=== PATIENT | male | born 1985 | race Caucasian/White ===

== ENCOUNTER 2021-05-19 19:18 | Emergency (ER) | payer MEDICAID ==
[~2021-05-19] VITALS: Ht 167.6 cm; Wt 77.6 kg
[2021-05-19 19:18] VITALS: BP 110/75
--- NOTE | 2021-05-19 19:18 | NUR ---
36 Y/O MALE PRESENTED TO ED C/O TONIC CLONIC SEZIURE ACTIVITY FOR UNKNOWN DURATION. PT'S FAMILY CALLED 911. PT HAS HX OF SEZIURES AND TBI X 4 YRS AGO. PT PRESENTING A/O X 3 , ORIENTED TO PERSON, PLACE BUT NOT TO TIME. PERRLA 4-3MM NOTED. PT STATES HE BIT HIS TONGUE AFTER HIS SEIZURE , SMALL ABRASION NOTED TO RIGHT SIDE OF TONGUE, NO BLEEDING NOTED. PT STATES HE HAD X 1 EPISODE OF URINARY INCONTINENCE. RR EVEN AND UNLABORED. 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 SEIZURE PRECAUTIONS IN PLACE. BED IS LOCKED AND IN LOWEST POSITION, HOB ELEVATED, SIDE RAIL X 2 FOR PT SAFETY. VSS.
--- NOTE | 2021-05-19 19:19 | NUR ---
PT OLIVIA ALS. TAKEN TO BED 9
[2021-05-19] MEDS ORDERED: LORazepam 2 MG/ML VIAL IVP ONE ×2 (19:55→20:30)
[2021-05-19] MEDS ORDERED: VALPROATE SODIUM 500 MG in NACL 0.9% 100 ML IV ONE (19:55)
[2021-05-19] MEDS ORDERED: VALPROATE SODIUM 500 MG/5 ML VIAL IV ONE (20:09)
--- NOTE | 2021-05-19 20:23 | NUR ---
PT PULLED OUT 18G TO LEFT ARM , PT NONVERBAL WHEN ASKED WHY HE PULLED OUT IV.
--- NOTE | 2021-05-19 20:24 | NUR ---
WHILE ATTEMPTING TO PLACE NEW IV , PT BEGAN A TONIC CLONIC SEIZURE AT THIS TIME. PT WAS PLACED ON SIDE AND SUCTIONED , NC OXYGEN PLACED ON PT. ATIVAN 1MG ADMINISTERED. SEIZURE LASTED 3 MINUTES.
[2021-05-19] MEDS ORDERED: LORazepam 2 MG/ML VIAL ONE (20:27)
--- NOTE | 2021-05-19 20:27 | NUR ---
Dr. Durham examining patient.
--- NOTE | 2021-05-19 20:27 | NUR ---
PTS SEIZURE COMPLETED AT THIS TIME. PT IN POST ICTAL STATE. MINIMAL BLEEDING NOTED TO TONGUE. PT'S VSS , CURRENTLY ON 2L NC. SEIZURE PRECAUTIONS STILL IN PLACE. NEW IV PLACED IN RT FA , 18G. ERMD AT BEDSIDE FOR MSE.
--- NOTE | 2021-05-19 20:50 | NUR ---
PT RESTING W/ EYES CLOSED, PERRLA NOTED 4-3. VSS. BED LOCKED AND IN LOWEST POSITION. VALPRONIC NA CURRENTLY RUNNING IN RT FA AT 105ML/HR.
--- NOTE | 2021-05-19 21:30 | NUR ---
PT PULLED OUT IV IN RT FOREARM. 4X4 PLACED ON IV SITE. BLEEDING CONTROLLED.
--- NOTE | 2021-05-19 23:30 | NUR ---
PT RESTING W/ EYES CLOSED, VISIBLE RISE AND FALL OF CHEST. RR EVEN AND UNLABORED .VSS. NO ACUTE DISTRESS NOTED.
--- NOTE | 2021-05-20 01:00 | NUR ---
PT STILL DISORIENTED BUT RESPONSIVE. VISIBLE RISE AND FALL OF CHEST. RR EVEN AND UNLABORED. NO ACUTE DISTRESS NOTED.
--- NOTE | 2021-05-20 01:49 | NUR ---
Dr. Avitia examining patient.
[2021-05-20] MEDS ORDERED: DIVA500T1 PO (02:01)
--- NOTE | 2021-05-20 02:15 | NUR ---
PT A/O X 4 AND FOLLOW COMMANDS. RR EVEN AND UNLABORED. VSS. PT STATES HE IS FEELING MUCH BETTER AT THIS TIME. NO ACUTE DISTRESS NOTED.
[2021-05-20 02:30] VITALS: BP 112/59
--- NOTE | 2021-05-20 02:30 | NUR ---
Patient discharged with v/s stable. Written and verbal after care instructions given and explained. Patient alert, oriented and verbalized understanding of instructions. Ambulatory with steady gait. All questions addressed prior to discharge. ID band removed. Patient advised to follow up with PMD. Rx of DEPAKOTE ER given. Patient educated on indication of medication including possible reaction and side effects. Opportunity to ask questions provided and answered.
== END 2021-05-20 02:30 | disposition home or self-care (01) ==
LOC: MED 19:18
DX: R56.9 Unspecified convulsions (principal); R51.9 Headache, unspecified; F17.210 Nicotine dependence, cigarettes, uncomplicated; H54.61 Unqualified visual loss, right eye, normal vision left eye; Z98.890 Other specified postprocedural states
CPT/HCPCS: 96365; 96375; 96376; 99284; J2060; J3490

== ENCOUNTER 2022-03-22 19:13 | Emergency (ER) | payer MEDICAID ==
[~2022-03-22] VITALS: Ht 167.6 cm; Wt 49.2 kg
[~2022-03-22 19:13] MED LIST: DIVA500T1 PO
[2022-03-22 19:29] VITALS: BP 125/77
--- NOTE | 2022-03-22 19:34 | NUR ---
PT TO BED 8
--- NOTE | 2022-03-22 20:04 | NUR ---
LAB AT BEDSIDE
--- NOTE | 2022-03-22 20:10 | NUR ---
DR ESCAMILLA EXAMINING PT
[2022-03-22 20:11] LABS: BASOPHILS % (AUTO) 0.4 % (0.0-2.0); EOSINOPHILS # (AUTO) 0.4 K/uL (0-0.4); EOSINOPHILS % (AUTO) 6.1 % (0.0-4.0); HEMATOCRIT 39.1 % (36-52); HEMOGLOBIN 13.1 g/dL (12.0-18.0); LYMPHOCYTES # (AUTO) 1.7 K/uL (2.0-11.5); LYMPHOCYTES % (AUTO) 28.9 % (20.5-51.1); MEAN CORPUSCULAR HEMOGLOBIN 29 pg (27-31); MEAN CORPUSCULAR HGB CONC 34 g/dL (33-37); MEAN CORPUSCULAR VOLUME 87.3 fL (80-94); MONOCYTES # (AUTO) 0.5 K/uL (0.8-1.0); MONOCYTES % (AUTO) 8.6 % (1.7-9.3); NEUTROPHILS # (AUTO) 3.4 K/uL (1.8-7.7); PLATELET COUNT (AUTO) 249 K/uL (140-450); RED BLOOD CELL COUNT(AUTO) 4.48 MIL/uL (4.20-6.10); RED CELL DISTRIBUTION WIDTH 13.9 % (11.6-13.7)
[2022-03-22 20:26] LABS: ALBUMIN 3.1 g/dL (3.4-5.0); ANION GAP 8.2 (8-16); CARBON DIOXIDE 28.6 mmol/L (21-32); CREATININE 0.6 mg/dL (0.6-1.3); POTASSIUM 3.8 mmol/L (3.5-5.1); TOTAL BILIRUBIN 0.2 mg/dL (0.0-1.0)
--- NOTE | 2022-03-22 20:43 | NUR ---
ULTRASOUND AT BEDSIDE
--- NOTE | 2022-03-22 20:43 | NUR ---
37YR OLD MALE C/0 ARM PAIN X1WEEK. PAIN 6/10 RADIATES TO ARMPIT. DENIES INJURY OR TRAUMA. PT STATES SEEN AT [facility] LAST WEEK FOR SZ, STATES AFTER IV PLACEMENT PAIN STARTED. GOOD CAP REFILL. GOOD ROM. HOB ELEVATED. BED AT LOWEST POSITION. SZ PADS PLACED ON SIDE RAILS X2. NKDA CIERRA
--- NOTE | 2022-03-22 22:21 | NUR ---
PT SLEEPING RESP EVEN AND UNLABORED. 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 NO DISTRESS NOTED. HOB ELEVATED
--- NOTE | 2022-03-22 22:28 | NUR ---
SISTER YOLI [phone]. SPOKE WITH SISTER. PT GAVE CONSTENT TO SPEAK WITH HER REGARDING HIS CARE . EXPLAINED TO FAMILY MEMEBER ON RESULTS ARE STILL PENDING. ASKED TO BE CALLED IF PT WAS TO BE ADMITED TO HOSPITAL
[2022-03-23 00:48] VITALS: BP 124/77
--- NOTE | 2022-03-23 00:48 | NUR ---
Patient discharged with v/s stable. Written and verbal after care instructions given and explained. Patient verbalized understanding. Ambulatory with steady gait. All questions addressed prior to discharge. Advised to follow up with PMD.
--- NOTE | 2022-03-23 00:51 | NUR ---
The patient's care was reviewed and supervised by Samantha Braga RN.
== END 2022-03-23 00:48 | disposition home or self-care (01) ==
LOC: MED 19:13
DX: M79.601 Pain in right arm (principal); F17.200 Nicotine dependence, unspecified, uncomplicated
CPT/HCPCS: 36415; 80053; 83735; 85025; 93971; 99284; Q0092

== ENCOUNTER 2023-12-10 18:32 | Emergency (ER) | payer MEDICAID ==
[~2023-12-10] VITALS: Ht 170.2 cm; Wt 61.2 kg
[2023-12-10 18:37] VITALS: BP 131/92; PULSE 119; RESP 19; TEMP 98; O2SAT 98
[2023-12-10 19:19] VITALS: BP 131/92; PULSE 119; RESP 19; TEMP 98; O2SAT 98
[2023-12-10] MEDS: KETOROLAC 30 MG/ML VIAL IM ONE (19:20)
[2023-12-10] MEDS ORDERED: IBUP-1842 PO (19:38)
== END 2023-12-10 20:06 | disposition home or self-care (01) ==
LOC: MED 18:32
DX: S82.65XA Nondisplaced fracture of lateral malleolus of left fibula, initial encounter for closed fracture (principal); I11.9 Hypertensive heart disease without heart failure; Z86.73 Personal history of transient ischemic attack (TIA), and cerebral infarction without residual deficits; Z79.899 Other long term (current) drug therapy; X50.1XXA Overexertion from prolonged static or awkward postures, initial encounter; Y93.89 Activity, other specified; Y92.89 Other specified places as the place of occurrence of the external cause; Y99.8 Other external cause status
CPT/HCPCS: 29515; 73610; 96372; 99283; J1885